=== PATIENT | male | born 1980 | race Caucasian/White ===

== ENCOUNTER 2017-05-22 09:27 | Inpatient (IN) | payer OTHER ==
[2017-05-22] VITALS (14 sets, daily range): BP systolic 145–171; BP diastolic 100–131
[~2017-05-22] VITALS: Ht 182.9 cm; Wt 83.9 kg
--- NOTE | ~2017-05-22 | HC ---
[facility] [place] [address] CONSULTATION Name: ZAIDA MCGEE Room #: 212-P ADM IN M.R.#: [id number] Admission: 05/22/17 Attend Phys: Alcon Fonseca MD Discharge: Date of : 76 Report #: [id number] THIS REPORT FOR: //name// CC: Dr. Raymundo Carvajal DATE OF SERVICE: 05/27/2017 HISTORY OF PRESENT ILLNESS: The patient is a 37-year-old male with a history of alcohol abuse who presented with abdominal pain and acute pancreatitis. I have actually seen the patient in consultation in 2003, in which he had pancreatitis at that time as well. The patient has been actively drinking at home up to a gallon of vodka a day. On admission, he underwent labs showing a lipase of 3248, lipase today is 1906. He is feeling better. He is having less pain, but still does have midepigastric abdominal pain that goes around to his back. He is on ice chips right now. He is hungry. He denies any fevers or chills. He also had alcohol withdrawal. His symptoms of hallucination and feeling jittery have subsided since admission. He denies any blood in his stools. No fevers or chills. No chest pain at this time or shortness of breath. PAST MEDICAL HISTORY: Alcohol abuse, history of acute pancreatitis, asthma. ALLERGIES: SUPRAX. MEDICATIONS: On admission, Ventolin and Zantac. SOCIAL HISTORY: History of alcohol abuse as described above, smokes 3-4 cigarettes per day. REVIEW OF SYSTEMS: As per HPI. FAMILY HISTORY: Negative for colon cancer. PHYSICAL EXAMINATION: VITAL SIGNS: Temperature is 98.2, pulse 94, blood pressure 112/79, respiratory rate is 18. GENERAL: He is alert and oriented x 3 in no acute distress. HEENT: Sclerae nonicteric. Oropharynx clear. NECK: Supple. The patient does have bilateral what appears to be parotid swelling. CARDIOVASCULAR: Regular rate and rhythm. CHEST: Clear to auscultation bilaterally. ABDOMEN: Soft. He is mildly tender to palpation in the mid epigastrium, nondistended, positive bowel sounds. EXTREMITIES: No cyanosis, clubbing or edema. [address] [address] CONSULTATION Name: ZAIDA MCEGE Room #: [address] [place] [address] [place] [facility].#: [id number] Admission: 05/22/17 Attend Phys: Alcon Fonseca MD Discharge: Date of : 76 Report #: [id number] LABORATORY DATA: 1. Sodium 136, potassium 3.8, chloride 104, bicarbonate 20, BUN 6, creatinine 0.7. AST 106, lipase 1906, total bilirubin is 3.4, alkaline phosphatase 118, ALT 34, albumin 3.1. GGTP is 698. Total protein is 6.0. WBC is 5.5, hemoglobin 12.5, MCV is 112.3 and platelet count is 232. 2. CT scan of the abdomen and pelvis on 05/22/2017, possible mild pancreatitis, fatty liver changes, mild circumferential mural thickening of the descending and sigmoid colon, possibility of colitis. ASSESSMENT AND PLAN: 1. Acute pancreatitis, likely secondary to alcohol abuse. Lipase remains elevated, but has been trending down. The patient appears to have clinically improved significantly over the last few days. We will start clear liquids at this time and advance diet as tolerated, likely tomorrow. 2. Elevated liver function tests, likely secondary to alcohol use. We will repeat LFTs tomorrow. Of note, fatty changes noted on CT scan. 3. Alcohol abuse. The patient did go through withdrawal. He is now improved. Would recommend alcohol abstinence and rehab. 4. CT showing the possibility of a colitis. He denies any diarrhea or bleeding at this time. May consider endoscopy in the near future once he is stabilized from a pancreatitis standpoint. Thank you for allowing me to participate in his care. <ELECTRONICALLY SIGNED> By: Blu Martinez MD 05/28/17 1413 [id number] Blu Martinez MD /nt
--- NOTE | ~2017-05-22 | EKG ---
[address] [place] [address] ELECTROCARDIOGRAM REPORT Name: ZAIDA MCGEE Room #: 243-P ADM IN M.R.#: [id number] Admission: 05/22/17 Attend Phys: Alcon Fonseca MD Discharge: Date of : 76 Report #: [id number] THIS REPORT FOR: //name// [facility] ED Test Date: 2017-05-22 Test Time: 10:32:37 Pat Name: ZAIDA MCGEE Department: Room: [facility] Gender: M Bus Girl: SHAYNE : 1980 Requested By: Nicko Parr Order Number: [id number] MD: Rj Albrecht Measurements Intervals [place] Rate: 91 P: 40 SD: 152 QRS: 3 QRSD: 103 T: 257 QT: 435 QTc: 536 Interpretive Statements Sinus rhythm Probable left atrial enlargement Repol abnrm suggests ischemia, anterolateral Prolonged QT interval No previous ECG available for comparison Electronically Signed On 05-23-2017 8:56:38 CDT by Rj Albrecht [email or web address] <ELECTRONICALLY SIGNED> By: Rj Albrecht MD, [facility] 05/23/17 0856 [id number] Rj Albrecht MD, [facility] /EPI
[~2017-05-22 09:27] MED LIST: ACID CONTROL20 MG PO; HYDROCODON-ACE1 EAC8 PO; INHALER INH; LEVAQUIN 500 M500 M2 PO; PREDNISONE 10 M10 MG; PRILOSEC40 MG PO; TRINATE TABLET1 TAB PO; VENTOLIN HFA 1818 GM INH; VITAMIN B-1100 M1 PO
[2017-05-22] MEDS ORDERED: ZANTAC 150MG T150 M1 PO (09:50)
[2017-05-22 10:15] LABS: ABSOLUTE NEUTROPHILS 4.3 thou/uL (1.4-8.2); BASOPHILS 0.9 % (0.0-2.0); EOSINOPHILS 1.6 % (0.0-3.0); HEMOGLOBIN 14.5 gm/dL (14.0-18.0); LYMPHOCYTES 18.8 % (24.0-44.0); MCH 39.3 pg (26.0-34.0); MCHC 36.2 g/dL (28.0-37.0); MCV 108.6 fL (80.0-100.0); MONOCYTES 8.1 % (1.0-8.0); PLATELET COUNT 191 thou/uL (150-400); POLYS 70.6 % (36.0-66.0); RBC 3.68 mil/uL (4.50-6.00); RDW 15.6 % (10.5-14.5); WBC 6.1 thou/uL (4.0-11.0)
[2017-05-22 10:17] LABS: MANUAL DIFF NO
[2017-05-22 10:28] LABS: CALCIUM 8.9 mg/dL (8.5-10.1); CREATININE 0.8 mg/dL (0.7-1.3)
[2017-05-22 10:32] LABS: POTASSIUM 2.5 mmol/L (3.5-5.1)
[2017-05-22 10:34] LABS: ALBUMIN 3.8 g/dL (3.4-5.0); TOTAL PROTEIN 7.4 g/dL (6.4-8.2)
[2017-05-22 10:35] LABS: TOTAL BILIRUBIN 4.9 mg/dL (<0.1-1.0)
[2017-05-22 10:48] LABS: PLATELET ESTIMATE NORMAL
[2017-05-22 10:49] LABS: ANISOCYTOSIS 1+; MACROCYTES 1+
[2017-05-22 10:52] LABS: MAGNESIUM 1.2 mg/dL (1.8-2.4)
[2017-05-22 14:34] LABS: URINE BILIRUBIN NEGATIVE (Negative); URINE BLOOD NEGATIVE (Negative); URINE COLOR YELLOW; URINE GLUCOSE-RANDOM* NEGATIVE (Negative); URINE KETONES TRACE (Negative); URINE LEUKOCYTES-REFLEX NEGATIVE (Negative); URINE PROTEIN (DIPSTICK) NEGATIVE (Negative); URINE SPECIFIC GRAVITY <= 1.005 (1.003-1.035)
[2017-05-23] VITALS (14 sets, daily range): BP systolic 127–178; BP diastolic 38–114
[2017-05-23 06:21] LABS: MCH 39.5 pg (26.0-34.0); MCHC 35.7 g/dL (28.0-37.0); MCV 110.8 fL (80.0-100.0); RBC 3.07 mil/uL (4.50-6.00); RDW 15.4 % (10.5-14.5); WBC 4.5 thou/uL (4.0-11.0)
[2017-05-23 06:24] LABS: HEMOGLOBIN 12.1 gm/dL (14.0-18.0)
[2017-05-23 06:36] LABS: ALBUMIN 3.1 g/dL (3.4-5.0); CALCIUM 7.5 mg/dL (8.5-10.1); CREATININE 0.5 mg/dL (0.7-1.3); MAGNESIUM 1.5 mg/dL (1.8-2.4); TOTAL BILIRUBIN 3.4 mg/dL (<0.1-1.0)
[2017-05-23 06:37] LABS: MAGNESIUM 1.5 mg/dL (1.8-2.4)
[2017-05-23 06:45] LABS: POTASSIUM 2.6 mmol/L (3.5-5.1)
[2017-05-23 13:23] LABS: MAGNESIUM 2.2 mg/dL (1.8-2.4); POTASSIUM 3.1 mmol/L (3.5-5.1)
[2017-05-24] VITALS (17 sets, daily range): BP systolic 125–169; BP diastolic 86–117
[2017-05-24 05:57] LABS: HEMATOCRIT 38.7 % (42.0-52.0); HEMOGLOBIN 13.1 gm/dL (14.0-18.0); MCH 38.1 pg (26.0-34.0); MCHC 33.8 g/dL (28.0-37.0); MCV 112.8 fL (80.0-100.0); RBC 3.43 mil/uL (4.50-6.00); RDW 15.3 % (10.5-14.5)
[2017-05-24 06:14] LABS: CALCIUM 7.8 mg/dL (8.5-10.1); CREATININE 0.5 mg/dL (0.7-1.3); MAGNESIUM 1.8 mg/dL (1.8-2.4); POTASSIUM 3.2 mmol/L (3.5-5.1)
[2017-05-24 18:29] LABS: MAGNESIUM 2.5 mg/dL (1.8-2.4); POTASSIUM 4.3 mmol/L (3.5-5.1)
[2017-05-25] VITALS (19 sets, daily range): BP systolic 113–194; BP diastolic 77–130
[2017-05-25 04:55] LABS: HEMATOCRIT 39.4 % (42.0-52.0); HEMOGLOBIN 13.4 gm/dL (14.0-18.0); MCH 38.5 pg (26.0-34.0); MCV 113.2 fL (80.0-100.0); RBC 3.48 mil/uL (4.50-6.00); RDW 15.4 % (10.5-14.5)
[2017-05-25 05:04] LABS: CALCIUM 8.4 mg/dL (8.5-10.1); CREATININE 0.5 mg/dL (0.7-1.3); MAGNESIUM 2.2 mg/dL (1.8-2.4); POTASSIUM 4.3 mmol/L (3.5-5.1)
[2017-05-26 03:45] LABS: HEMATOCRIT 37.9 % (42.0-52.0); HEMOGLOBIN 12.8 gm/dL (14.0-18.0); MCH 38.5 pg (26.0-34.0); MCHC 33.9 g/dL (28.0-37.0); MCV 113.6 fL (80.0-100.0); RBC 3.33 mil/uL (4.50-6.00); RDW 15.6 % (10.5-14.5); WBC 5.4 thou/uL (4.0-11.0)
[2017-05-26 04:01] LABS: CALCIUM 8.2 mg/dL (8.5-10.1); CREATININE 0.7 mg/dL (0.7-1.3); POTASSIUM 3.6 mmol/L (3.5-5.1)
[2017-05-26 05:43] VITALS: BP 192/100
[2017-05-26 07:34] VITALS: BP 147/98
[2017-05-26 11:19] VITALS: BP 135/91
[2017-05-26 16:21] VITALS: BP 121/80
[2017-05-26 20:49] VITALS: BP 143/92
[2017-05-27 03:26] VITALS: BP 146/90
[2017-05-27 04:01] LABS: HEMATOCRIT 35.9 % (42.0-52.0); HEMOGLOBIN 12.5 gm/dL (14.0-18.0); MCH 39.2 pg (26.0-34.0); MCHC 34.9 g/dL (28.0-37.0); MCV 112.3 fL (80.0-100.0); RBC 3.2 mil/uL (4.50-6.00); RDW 15.5 % (10.5-14.5); WBC 5.5 thou/uL (4.0-11.0)
[2017-05-27 04:30] LABS: CALCIUM 9.2 mg/dL (8.5-10.1); CREATININE 0.7 mg/dL (0.7-1.3); MAGNESIUM 1.9 mg/dL (1.8-2.4); POTASSIUM 3.8 mmol/L (3.5-5.1)
[2017-05-27 08:14] VITALS: BP 165/96
[2017-05-27 11:21] VITALS: BP 103/67
[2017-05-27 16:12] VITALS: BP 112/79
[2017-05-27 20:02] VITALS: BP 130/92
[2017-05-28 01:50] LABS: HEMATOCRIT 34.9 % (42.0-52.0); MCH 38.9 pg (26.0-34.0); MCHC 34.5 g/dL (28.0-37.0); MCV 112.6 fL (80.0-100.0); PLATELET COUNT 252 thou/uL (150-400); RBC 3.09 mil/uL (4.50-6.00); RDW 15.5 % (10.5-14.5); WBC 4.5 thou/uL (4.0-11.0)
[2017-05-28 02:02] LABS: ALBUMIN 3.8 g/dL (3.4-5.0); CALCIUM 9.6 mg/dL (8.5-10.1); CREATININE 0.5 mg/dL (0.7-1.3); DIRECT BILIRUBIN 0.5 mg/dL (<0.1-0.3); POTASSIUM 3.5 mmol/L (3.5-5.1); TOTAL PROTEIN 7.1 g/dL (6.4-8.2)
[2017-05-28 02:11] LABS: MANUAL DIFF YES
[2017-05-28 03:33] VITALS: BP 151/113
[2017-05-28 07:28] VITALS: BP 170/111
[2017-05-28 08:09] LABS: ABSOLUTE NEUTROPHILS 2.4 thou/uL (1.4-8.2); MACROCYTES 2+; METAMYELOCYTES 1 %; TOTAL CELL COUNT 100
[2017-05-28 11:40] VITALS: BP 111/84
[2017-05-28 16:12] VITALS: BP 120/88
[2017-05-28 20:03] VITALS: BP 123/89
[2017-05-29 04:31] VITALS: BP 118/78
[2017-05-29 05:05] LABS: HEMATOCRIT 33.9 % (42.0-52.0); HEMOGLOBIN 11.7 gm/dL (14.0-18.0); MCH 38.7 pg (26.0-34.0); MCHC 34.5 g/dL (28.0-37.0); MCV 112.3 fL (80.0-100.0); PLATELET COUNT 243 thou/uL (150-400); RBC 3.02 mil/uL (4.50-6.00); RDW 15.3 % (10.5-14.5)
[2017-05-29 05:09] LABS: MANUAL DIFF YES
[2017-05-29 05:18] LABS: ALBUMIN 3.7 g/dL (3.4-5.0); CALCIUM 9.7 mg/dL (8.5-10.1); CREATININE 0.5 mg/dL (0.7-1.3); POTASSIUM 3.7 mmol/L (3.5-5.1); TOTAL BILIRUBIN 0.9 mg/dL (<0.1-1.0); TOTAL PROTEIN 6.8 g/dL (6.4-8.2)
[2017-05-29 07:19] VITALS: BP 130/92
[2017-05-29 09:07] LABS: ABSOLUTE NEUTROPHILS 2.2 thou/uL (1.4-8.2); MACROCYTES 2+; TOTAL CELL COUNT 100
[2017-05-29] MEDS ORDERED: HYDROCODON-ACE1 EAC8 PO (09:59)
[2017-05-29 11:16] VITALS: BP 110/72
[2017-05-29 21:14] VITALS: BP 154/112
[2017-05-30 04:15] VITALS: BP 136/97
[2017-05-30 07:52] VITALS: BP 158/116
[2017-05-30] MEDS ORDERED: VALIUM5 MG PO (10:06)
[2017-05-30 10:25] VITALS: BP 151/91
== END 2017-05-30 11:30 | disposition home or self-care (01) | DRG 438 ==
LOC: ER 09:27 → ICU 11:42 → EROBS 11:42 → ICU 14:25 → 2N 05-25 12:15
PROVIDERS: Family Medicine; Nurse Practitioner; Physician Assistant
PROC: 02HV33Z Insertion of Infusion Device into Superior Vena Cava, Percutaneous Approach (ICD-10-PCS; principal; 2017-05-26)
PROC: B548ZZA Ultrasonography of Superior Vena Cava, Guidance (ICD-10-PCS; principal; 2017-05-26)
DX: K85.20 Alcohol induced acute pancreatitis without necrosis or infection (principal); G93.41 Metabolic encephalopathy; F10.239 Alcohol dependence with withdrawal, unspecified; F10.229 Alcohol dependence with intoxication, unspecified; Y90.0 Blood alcohol level of less than 20 mg/100 ml; E87.6 Hypokalemia; E83.42 Hypomagnesemia; K52.9 Noninfective gastroenteritis and colitis, unspecified; I10 Essential (primary) hypertension; F12.90 Cannabis use, unspecified, uncomplicated; J30.2 Other seasonal allergic rhinitis; J45.909 Unspecified asthma, uncomplicated; F17.210 Nicotine dependence, cigarettes, uncomplicated; K76.0 Fatty (change of) liver, not elsewhere classified; Z88.8 Allergy status to other drugs, medicaments and biological substances
CPT/HCPCS: 10078; 10081; 27000